=== PATIENT | male | born 1945 | race Caucasian/White ===

== ENCOUNTER 2016-09-19 11:38 | Inpatient (IN) | payer BC, OTHER ==
--- NOTE | 2016-09-19 12:08 | EDPHY ---
H & P Stated Complaint: Sent by PCP for recheck/eval elevated creatinine on Saturday Time Seen by Provider: 09/19/16 11:53 HPI/ROS: CHIEF COMPLAINT: Referred to the ED for evaluation of abnormal creatinine HISTORY OF PRESENT ILLNESS: The patient presents to the emergency department after he was diagnosed with acute renal failure with screening laboratory studies which were performed on Saturday. The patient denies prior history of acute renal failure but does have a history of BPH. Patient had been out of his Flomax for several weeks. The patient has had some symptoms of indigestion but denies any anuria. The patient does report history of congestive heart failure secondary to obstructive sleep apnea. The patient does take lisinopril and unknown diuretic. The patient denies any additional medication changes. The patient denies weight gain. The patient denies excessive dyspnea. The patient reportedly had a creatinine of 11 according to his primary care provider. The patient was not sent to the ED with any laboratory studies. REVIEW OF SYSTEMS: A comprehensive 10 point review of systems is otherwise negative aside from elements mentioned in the history of present illness. Source: Patient Exam Limitations: No limitations - Personal History Current Tetanus Diphtheria and Acellular Pertussis (TDAP): Yes - Medical/Surgical History Other PMH: HTN. CHF. GERD - Family History Significant Family History: No pertinent family hx - Social History Smoking Status: Former smoker - Physical Exam Exam: General Appearance: Alert, no acute distress Eyes: Pupils equal and round no pallor or injection ENT, Mouth: Mucous membranes moist Respiratory: There are no retractions, lungs are clear to auscultation Cardiovascular: Regular rate and rhythm Gastrointestinal: Abdomen is soft and nontender, no masses, bowel sounds normal Neurological: A&O, normal motor function, normal sensory exam, normal cranial nerves Skin: Warm and dry, no rashes Musculoskeletal: Neck is supple nontender Extremities: symmetrical, full range of motion Constitutional: Initial Vital Signs Temperature (C) 36.7 C 09/19/16 11:40 Heart Rate 90 09/19/16 11:40 Respiratory Rate 18 09/19/16 11:40 Blood Pressure 171/98 H 09/19/16 11:40 O2 Sat (%) 96 09/19/16 11:40 O2 Delivery Mode Room Air Allergies/Adverse Reactions: azithromycin [From Zithromax] Allergy (Mild, Verified 09/19/16 11:45) black splotches on skin Home Medications: Medication Instructions Recorded Albuterol [Proventil Inhaler HFA 1 - 2 puffs IH 09/19/16 (*)] Hydrochlorothiazide [HCTZ (*)] 25 mg PO DAILY 09/19/16 Lisinopril [Zestril 20 mg (*)] 20 mg PO 09/19/16 Omeprazole [Prilosec 20 mg] 20 mg PO DAILY 09/19/16 Tamsulosin HCl [Flomax 0.4 MG (*)] 0.4 mg PO 09/19/16 Medical Decision Making - Diagnostics EKG Interpretation: EKG: Complete interpretation has been separately recorded in the [employer] archive. Summary impression: Sinus rhythm, rate 73. ED Course/Re-evaluation: The patient presents to the ED with reportedly newly diagnosed acute renal failure. The patient is hemodynamically stable upon arrival aside from mild hypertension. The patient does not appear to be fluid overloaded. The patient has been placed on a instructional design consultant and a i-STAT creatinine was obtained. I- STAT does confirm a elevated creatinine of 11.5. The patient is noted to have a normal potassium of 4.5. His EKG demonstrates no widened QRS or significant arrhythmia. The patient did void and had a postvoid residual measured at 600 mL. A Hill catheter has been placed in the setting of his acute renal failure and urinary retention. The patient will be admitted to the hospital for further evaluation and management of his acute renal failure. Consultation was made with the hospitalist at 12:50 p.m.: The patient will be admitted to the hospital by Dr. Cristy Woodall. Consultation was made with nephrology at 1:00 p.m and I spoke with Dr. Deshpande. The patient will be evaluated by their service. A retroperitoneal ultrasound has been ordered The patient was re-evaluated by myself at 1:00 p.m.. He is informed of the plan for hospitalization. The patient's Hill catheter has put out 1800 mL in the 1st 0.5 hour. Differential Diagnosis: Differential diagnosis considered includes acute renal failure, acute urinary retention, hyperkalemia, medication side effect - Data Points Laboratory Results: Laboratory Results 09/19/16 12:15 09/19/16 12:15 09/19/16 09/19/16 09/19/16 12:19 12:15 12:15 WBC 6.24 10^3/uL 10^3/uL (3.80-9.50) RBC 2.86 10^6/uL L 10^6/uL (4.40-6.38) Hgb 8.5 g/dL L g/dL (13.7-17.5) POC Hgb 9.2 gm/dL L gm/dL (14.5-17.3) Hct 26.9 % L % (40.0-51.0) POC Hct 27 % L % (42.8-50.6) MCV 94.1 fL fL (81.5-99.8) MCH 29.7 pg pg (27.9-34.1) MCHC 31.6 g/dL L g/dL (32.4-36.7) RDW 13.7 % % (11.5-15.2) Plt Count 123 10^3/uL L 10^3/uL (150-400) MPV 12.9 fL H fL (8.7-11.7) Neut % (Auto) 76.7 % H % (39.3-74.2) Lymph % (Auto) 9.6 % L % (15.0-45.0) Day % (Auto) 9.9 % % (4.5-13.0) Eos % (Auto) 3.0 % % (0.6-7.6) Baso % (Auto) 0.3 % % (0.3-1.7) Nucleat RBC Rel Count 0.0 % % (0.0-0.2) Absolute Neuts (auto) 4.78 10^3/uL 10^3/uL (1.70-6.50) Absolute Lymphs (auto) 0.60 10^3/uL L 10^3/uL (1.00-3.00) Absolute Monos (auto) 0.62 10^3/uL 10^3/uL (0.30-0.80) Absolute Eos (auto) 0.19 10^3/uL 10^3/uL (0.03-0.40) Absolute Basos (auto) 0.02 10^3/uL 10^3/uL (0.02-0.10) Absolute Nucleated RBC 0.00 10^3/uL 10^3/uL (0-0.01) Immature Gran % 0.5 % % (0.0-1.1) Immature Gran # 0.03 10^3/uL 10^3/uL (0.00-0.10) POC Sodium 136 mEq/L mEq/L (134-144) Sodium 137 mEq/L mEq/L (134-144) POC Potassium 4.5 mEq/L mEq/L (3.3-5.0) Potassium 4.8 mEq/L mEq/L (3.5-5.2) POC Chloride 102 mEq/L mEq/L (96-108) Chloride 102 mEq/L mEq/L (97-110) Carbon Dioxide 19 mEq/l L mEq/l (22-31) Anion Gap 16 mEq/L mEq/L (8-16) POC BUN 112 mg/dL H* mg/dL (7-23) BUN 101 mg/dL H* mg/dL (7-23) Creatinine 10.9 mg/dL H* mg/dL (0.7-1.3) POC Creatinine 11.5 mg/dL H* mg/dL (0.8-1.5) Estimated GFR 5 Glucose 88 mg/dL mg/dL (70-100) POC Glucose 91 mg/dL mg/dL (70-100) Calcium 8.4 mg/dL L mg/dL (8.5-10.4) Point of Care Test Results: 09/19/16 12:19 POC Sodium 136 POC Potassium 4.5 POC Chloride 102 POC BUN 112 H* POC Creatinine 11.5 H* POC Glucose 91 Departure - Departure Disposition: [facility] Inpatient Acute Clinical Impression: Acute renal failure, Urinary retention Condition: Fair
--- NOTE | 2016-09-19 12:21 | CPEKG ---
Heart Rate: 73 RR Interval: 822 P-R Interval: 248 QRSD Interval: 156 QT Interval: 448 QTC Interval: 494 P [place]: 61 QRS [place]: 51 T Wave [place]: 46 EKG Severity - ABNORMAL ECG - EKG Impression: SINUS RHYTHM EKG Impression: FIRST DEGREE AV BLOCK EKG Impression: PROBABLE LEFT ATRIAL ABNORMALITY EKG Impression: RIGHT BUNDLE BRANCH BLOCK Electronically Signed By: Lux Leone 19-Sep-2016 15:53:27
[2016-09-19 12:29] LABS: % IMMATURE GRANULYOCYTES 0.5 % (0.0-1.1); ABSOLUTE IMMATURE GRANULOCYTES 0.03 10^3/uL (0.00-0.10); ADD DIFF? NO; ADD MORPH? NO; ADD SCAN? NO; ATYPICAL LYMPHOCYTE FLAG 0 (0-99); FRAGMENT RBC FLAG 0 (0-99); HEMATOCRIT 26.9 % (40.0-51.0); HEMOGLOBIN 8.5 g/dL (13.7-17.5); LEFT SHIFT FLG 0 (0-99); LIPEMIA HEMOLYSIS FLAG 80 (0-99); MEAN CELL HEMOGLOBIN 29.7 pg (27.9-34.1); MEAN CELL HEMOGLOBIN CONCENTR. 31.6 g/dL (32.4-36.7); MEAN CELL VOLUME 94.1 fL (81.5-99.8); MEAN PLATELET VOLUME 12.9 fL (8.7-11.7); PLATELET CLUMPS FLAG 10 (0-99); PLATELET COUNT 123 10^3/uL (150-400); RED BLOOD CELL COUNT 2.86 10^6/uL (4.40-6.38); RED CELL DISTRIBUTION WIDTH 13.7 % (11.5-15.2)
[2016-09-19 12:52] LABS: ANION GAP 16 mEq/L (8-16); CALCIUM 8.4 mg/dL (8.5-10.4); CARBON DIOXIDE 19 mEq/l (22-31); CHLORIDE 102 mEq/L (97-110); GLOMERULAR FILTRATION RATE 5; GLUCOSE 88 mg/dL (70-100); POTASSIUM 4.8 mEq/L (3.5-5.2); SODIUM 137 mEq/L (134-144)
[2016-09-19 12:56] LABS: CREATININE 10.9 mg/dL (0.7-1.3)
[2016-09-19] MEDS ORDERED: ONDANSETRON 4 MG/2 ML VIAL IVP PRN (14:35)
[2016-09-19] MEDS ORDERED: ONDANSETRON DISINTEGRATING 4 MG TAB PO PRN (14:35)
[2016-09-19] MEDS ORDERED: ACETAMINOPHEN 325 MG TAB PO PRN (14:35)
[2016-09-19 15:28] LABS: COLOR YELLOW; LEUKOCYTE ESTERASE,URINE NEGATIVE (NEGATIVE); NITRITE,URINE NEGATIVE (NEGATIVE)
--- NOTE | 2016-09-19 16:51 | PDGENHP ---
History and Physical - Chief Complaint abnormal labs - History of Present Illness 71 yo male with long h/o BPH who stopped his flomax 6 weeks ago, had labs drawn at the [facility] Saturday and was sent to the ED due to elevated creatinine. History Information - Allergies/Home Medication List Allergies/Adverse Reactions: azithromycin [From Zithromax] Allergy (Mild, Verified 09/19/16 11:45) black splotches on skin Fish Containing Products [fish] Allergy (Verified 09/19/16 14:34) fish derived Allergy (Verified 09/19/16 14:34) Home Medications: Albuterol [Proventil Inhaler HFA (*)] 1 - 2 puffs IH Q4H PRN 09/19/16 [Last Taken Unknown] Chlorthalidone [Chlorthalidone 25 mg (*)] 12.5 mg PO DAILY 09/19/16 [Last Taken 09/19/16] Ibuprofen [Motrin (*)] 400 mg PO DAILY PRN 09/19/16 [Last Taken Unknown] Lisinopril [Zestril 20 mg (*)] 20 mg PO DAILY@18 09/19/16 [Last Taken 09/18/16] Omeprazole [Prilosec 20 mg] 20 mg PO DAILY 09/19/16 [Last Taken 09/19/16] Tamsulosin HCl [Flomax 0.4 MG (*)] 0.4 mg PO HS 09/19/16 [Last Taken 09/18/16] I have personally reviewed and updated: family history, medical history, social history, surgical history - Past Medical History GERD Additional medical history: CHICA, h/o heart failure, mild intermittent asthma, hypertension - Surgical History Reports: hernia repair Additional surgical history: umbilical hernia repair - Family History Additional family history: Mom had Parkinson's, sister had leukemia - Social History Smoking Status: Former smoker Alcohol Use: Rarely Drug Use: None (Lives in [place], retired taxi dispatcher) Review of Systems ROS: 10pt was reviewed & negative except for what was stated in HPI & below Physical Exam Temp Pulse Resp BP Pulse Ox 36.7 C 79 20 150/94 H 95 09/19/16 15:48 09/19/16 15:48 09/19/16 15:48 09/19/16 15:48 09/19/16 15:48 Constitutional: no apparent distress Eyes: PERRL Ears, Nose, Mouth, Throat: moist mucous membranes Cardiovascular: regular rate and rhythym, no murmur, rub, or gallop Respiratory: no respiratory distress, clear to auscultation Gastrointestinal: normoactive bowel sounds, soft, non-tender abdomen Skin: warm Musculoskeletal: full muscle strength Neurologic: AAOx3 Psychiatric: interacting appropriately Lab Data & Imaging Review 09/19/16 12:15 09/19/16 12:15 WBC 6.24 10^3/uL (3.80-9.50) 09/19/16 12:15 RBC 2.86 10^6/uL (4.40-6.38) L 09/19/16 12:15 Hgb 8.5 g/dL (13.7-17.5) L 09/19/16 12:15 POC Hgb 9.2 gm/dL (14.5-17.3) L 09/19/16 12:19 Hct 26.9 % (40.0-51.0) L 09/19/16 12:15 POC Hct 27 % (42.8-50.6) L 09/19/16 12:19 MCV 94.1 fL (81.5-99.8) 09/19/16 12:15 MCH 29.7 pg (27.9-34.1) 09/19/16 12:15 MCHC 31.6 g/dL (32.4-36.7) L 09/19/16 12:15 RDW 13.7 % (11.5-15.2) 09/19/16 12:15 Plt Count 123 10^3/uL (150-400) L 09/19/16 12:15 MPV 12.9 fL (8.7-11.7) H 09/19/16 12:15 Neut % (Auto) 76.7 % (39.3-74.2) H 09/19/16 12:15 Lymph % (Auto) 9.6 % (15.0-45.0) L 09/19/16 12:15 [place] % (Auto) 9.9 % (4.5-13.0) 09/19/16 12:15 Eos % (Auto) 3.0 % (0.6-7.6) 09/19/16 12:15 Baso % (Auto) 0.3 % (0.3-1.7) 09/19/16 12:15 Nucleat RBC Rel Count 0.0 % (0.0-0.2) 09/19/16 12:15 Absolute Neuts (auto) 4.78 10^3/uL (1.70-6.50) 09/19/16 12:15 Absolute Lymphs (auto) 0.60 10^3/uL (1.00-3.00) L 09/19/16 12:15 Absolute Monos (auto) 0.62 10^3/uL (0.30-0.80) 09/19/16 12:15 Absolute Eos (auto) 0.19 10^3/uL (0.03-0.40) 09/19/16 12:15 Absolute Basos (auto) 0.02 10^3/uL (0.02-0.10) 09/19/16 12:15 Absolute Nucleated RBC 0.00 10^3/uL (0-0.01) 09/19/16 12:15 Immature Gran % 0.5 % (0.0-1.1) 09/19/16 12:15 Immature Gran # 0.03 10^3/uL (0.00-0.10) 09/19/16 12:15 POC Sodium 136 mEq/L (134-144) 09/19/16 12:19 Sodium 137 mEq/L (134-144) 09/19/16 12:15 POC Potassium 4.5 mEq/L (3.3-5.0) 09/19/16 12:19 Potassium 4.8 mEq/L (3.5-5.2) 09/19/16 12:15 POC Chloride 102 mEq/L (96-108) 09/19/16 12:19 Chloride 102 mEq/L (97-110) 09/19/16 12:15 Carbon Dioxide 19 mEq/l (22-31) L 09/19/16 12:15 Anion Gap 16 mEq/L (8-16) 09/19/16 12:15 POC BUN 112 mg/dL (7-23) H* 09/19/16 12:19 BUN 101 mg/dL (7-23) H* 09/19/16 12:15 Creatinine 10.9 mg/dL (0.7-1.3) H* 09/19/16 12:15 POC Creatinine 11.5 mg/dL (0.8-1.5) H* 09/19/16 12:19 Estimated GFR 5 09/19/16 12:15 Glucose 88 mg/dL (70-100) 09/19/16 12:15 POC Glucose 91 mg/dL (70-100) 09/19/16 12:19 Calcium 8.4 mg/dL (8.5-10.4) L 09/19/16 12:15 Urine Color YELLOW 09/19/16 14:53 Urine Appearance HAZY 09/19/16 14:53 Urine pH 7.0 (5.0-7.5) 09/19/16 14:53 Ur Specific [place] 1.009 (1.002-1.030) 09/19/16 14:53 Urine Protein 2+ (NEGATIVE) H 09/19/16 14:53 Urine Ketones NEGATIVE (NEGATIVE) 09/19/16 14:53 Urine Blood 1+ (NEGATIVE) H 09/19/16 14:53 Urine Nitrate NEGATIVE (NEGATIVE) 09/19/16 14:53 Urine Bilirubin NEGATIVE (NEGATIVE) 09/19/16 14:53 Urine Urobilinogen NEGATIVE EU (0.2-1.0) 09/19/16 14:53 Ur Leukocyte Esterase NEGATIVE (NEGATIVE) 09/19/16 14:53 Urine RBC 1-3 /hpf (0-3) 09/19/16 14:53 Urine WBC 5-10 /hpf (0-3) H 09/19/16 14:53 Ur Epithelial Cells TRACE /lpf (NONE-1+) 09/19/16 14:53 Ur Culture Indicated? INDICATED (NI) H 09/19/16 14:53 Urine Glucose 1+ (NEGATIVE) H 09/19/16 14:53 Assessment & Plan Assessment: Acute renal failure secondary to BPH and urinary retention - Normal electrolytes , no dialysis needs. Solorzano placed with 1,800 cc's urine returned. U/S reveals b/l hydro. He is started on Flomax. Will likely need to continue solorzano until Urology follow up. Hold Lisinopril, no nsaids. Nephrology consulted, appreciate assistance. BPH - Flomax, solorzano, will check PSA in am. Urology f/u as above. Anemia - normocytic. New since 2016. SPEP sent per renal. Query anemia of kidney disease given renal failure. Will check hemoccult stools, if positive, will need outpt colonoscopy. Will also send iron studies, B12 and folate. Hypertension - hold Lisinopril given renal failure. Will start low dose Norvasc , up-titrate as needed. Asthma - no acute symptoms, prn albuterol. CHICA - pt should have outpt sleep study for consideration of CPAP. H/O heart failure - no acute exacerbation, monitor. Full code DVT PPLX - CHAKA Dispo - Pt is admitted to inpatient status as he'll likely require >48 hrs hospitalization for ongoing management of his acute renal failure.
[2016-09-19] MEDS ORDERED: ALBUTEROL 60 PUFFS/8 GM MDI IH PRN (16:56)
--- NOTE | 2016-09-19 17:33 | GCON ---
NEPHROLOGY CONSULTATION DATE OF CONSULTATION: 09/19/2016 REASON FOR CONSULTATION: Acute renal failure. HISTORY OF PRESENT ILLNESS: I have been asked to evaluate the patient regarding his acute renal js lure. He is a 71-year-old gentleman with history of longstanding benign prostatic hypertrophy. He has been on Flomax for several years. He also has a history of hypertension, treated with lisinopri l for the last few years. His baseline creatinine appears to be approximately 1.5, and was 1.7 when last quantified in July 2015. He ran out of his Flomax 5 or 6 weeks ago and just had it refille d 2 days ago. He saw his primary care physician on that date due to some abdominal discomfort, whic h he attributed to reflux. Labs drawn on that day revealed a creatinine of 11 and he was subsequent ly referred to the emergency room today. Repeat labs here confirmed a creatinine of nearly 11. A F oley catheter was placed and it immediately returned nearly 2 L of urine. Renal ultrasound performe d after Hill catheter placement revealed moderate, bilateral hydronephrosis. His electrolytes are essentially normal aside from the mild metabolic acidosis. He does have significant anemia with hem oglobin of 8.5. His last hemoglobin in July 2015 was 17.8. He denies any significant change in his voiding symptoms while off Flomax, aside from perhaps and increase in urinary frequency. He den ies any gross hematuria, lower extremity edema or skin rashes. He denies any shortness of breath or dyspnea on exertion. He does not use NSAIDs on a regular basis. PAST MEDICAL HISTORY: 1. BPH, he denies any previous history of urinary retention. 2. Hypertension, treated for approximately 10 years. 3. "CHF." He states this has been attributed to sleep apnea in the past. 4. Obstructive sleep apnea. 5. Gastroesophageal reflux. 6. Asthma. PAST SURGICAL HISTORY: Umbilical hernia repair. ALLERGIES: Azithromycin and fish-containing products. ADMISSION MEDICATIONS: Lisinopril 20 mg daily, hydrochlorothiazide 25 mg daily, Prilosec 20 mg martha y, Flomax 0.4 mg daily and albuterol inhaler as needed. SOCIAL HISTORY: He is originally from [facility] but has lived in [place] for 45 years. He is retired. In the past he worked as a taxi dispatcher. He is a former smoker. FAMILY HISTORY: Negative for renal disease as far as he is aware. REVIEW OF SYSTEMS: Positive for some abdominal discomfort for approximately 3 weeks, which has now resolved following Hill catheter placement. He denies shortness of breath or chest pain. Aside fr om other positives noted in the HPI, the remainder of 10 organ system review is negative. PHYSICAL EXAMINATION: GENERAL: He is in no acute distress. VITAL SIGNS: Blood pressure is 150/94 , heart rate is 79, oxygen saturation is 95% on room air. HEENT: Sclerae are anicteric. Oral muco sa is moist. NECK: Supple without JVD or lymphadenopathy. There are no carotid bruits. LUNGS: C lear to auscultation bilaterally. BACK: No CVA tenderness. HEART: Regular rate and rhythm. A 2/ 6 systolic murmur. No gallops or rubs. ABDOMEN: Soft and nontender with normoactive bowel sounds. I do not appreciate hepatosplenomegaly, mass or bruits. EXTREMITIES: There is no lower extremity edema. The feet are warm and appear well perfused. Pedal pulses are palpable bilaterally. SKIN: There are no skin rashes. NEUROLOGIC: He is awake, alert and appropriate. There is no facial droop. : Hill catheter is present draining copious amounts of clear, yellow urine. LABORATORY DATA: Sodium 137, potassium 4.8, chloride 102, CO2 19, BUN 101, creatinine 10.9, calcium 8.4. White blood cell count 6.2, hemoglobin 8.5 and platelets 123. Urinalysis shows a specific gr avity of 1.009, 2+ protein, 1+ blood, 1-3 red blood cells and 5-10 white blood cells per high power field. Abdominal ultrasound demonstrates moderate bilateral hydronephrosis and hydroureter without obstructing lesion. The bladder is decompressed by Hill catheter. IMPRESSION AND PLAN: 1. Acute renal failure: This is almost certainly obstructive uropathy due to urinary retention. Chris gallagher is now having copious urine output following placement of a Hill catheter, and I suspect his crea tinine will decrease promptly. The exact duration of his obstruction is unclear. Based on his symp toms and history, this has likely been for at least several weeks. It remains to be seen whether or not he will recover to his baseline creatinine. The presence of new-onset anemia is potentially co ncerning for advanced, chronic renal failure. I will send a serum protein electrophoresis due to th e presence of anemia but will not perform additional diagnostic evaluation at this time. Though he is having copious urine output, he is taking adequate p.o. and I do not feel he necessarily requires replacement IV fluids at this time. 2. Anemia: This has developed over the past 12 months, and could theoretically be due to advanced chronic renal failure. I will check a serum protein electrophoresis, as noted above. If his renal function recovers rapidly and completely, then this should not be attributable to renal failure and other diagnoses should be pursued. 3. Hypertension: His lisinopril could be continued but I would hold his thiazide diuretic as I exp ect he will have a significant post-obstructive diuresis. Thank you for the consultation. We will follow with you. /[id number]/MODL
[2016-09-19 19:21] LABS: % SATURATION 19 % (20-55); TOTAL IRON BINDING CAPACITY 204 ug/dL (260-490)
[2016-09-19] MEDS: HEPARIN 5,000 UNIT/0.5 ML SYR SC SCH (20:15)
[2016-09-19] MEDS: TAMSULOSIN HCL 0.4 MG CAP PO SCH (20:15)
[2016-09-19 22:28] LABS: MAGNESIUM 1.9 mg/dL (1.6-2.3)
[2016-09-20] MEDS: HEPARIN 5,000 UNIT/0.5 ML SYR SC SCH ×3 (05:28→20:38)
[2016-09-20 06:05] LABS: % IMMATURE GRANULYOCYTES 0.6 % (0.0-1.1); ABSOLUTE IMMATURE GRANULOCYTES 0.04 10^3/uL (0.00-0.10); ADD DIFF? NO; ADD MORPH? NO; ADD SCAN? NO; ATYPICAL LYMPHOCYTE FLAG 0 (0-99); FRAGMENT RBC FLAG 0 (0-99); HEMOGLOBIN 8.2 g/dL (13.7-17.5); LEFT SHIFT FLG 0 (0-99); LIPEMIA HEMOLYSIS FLAG 80 (0-99); MEAN CELL HEMOGLOBIN 29.3 pg (27.9-34.1); MEAN CELL HEMOGLOBIN CONCENTR. 31.5 g/dL (32.4-36.7); MEAN CELL VOLUME 92.9 fL (81.5-99.8); MEAN PLATELET VOLUME 12.6 fL (8.7-11.7); PLATELET CLUMPS FLAG 10 (0-99); PLATELET COUNT 138 10^3/uL (150-400); RED CELL DISTRIBUTION WIDTH 13.4 % (11.5-15.2)
[2016-09-20 06:29] LABS: ALBUMIN 3.6 g/dL (3.5-5.0); ANION GAP 17 mEq/L (8-16); CALCIUM 8.3 mg/dL (8.5-10.4); CARBON DIOXIDE 18 mEq/l (22-31); CHLORIDE 102 mEq/L (97-110); GLOMERULAR FILTRATION RATE 5; GLUCOSE 79 mg/dL (70-100); POTASSIUM 4.7 mEq/L (3.5-5.2); SODIUM 137 mEq/L (134-144)
[2016-09-20 06:31] LABS: CREATININE 10.9 mg/dL (0.7-1.3)
--- NOTE | 2016-09-20 08:29 | HOSPPROG ---
Hospitalist Progress Note Assessment/Plan: Patient is a 71-year-old male with a history of BPH. He stop taking his Flomax 6 weeks ago. [facility] and was told to come to the emergency room for further care and evaluation. Today is my 1st encounter with the patient. Chart reviewed. Reviewed his care yesterday with Dr. Woodall who admitted him. *Acute renal failure - Due to urinary retention and BPH - Flomax restarted *BPH - Flomax, solorzano -needs f/u with urology/concerned this will be difficult for the patient/ call into urology -check a PSA *metabolic acidosis -due to the above *Hypotensive -parameters place on when to hold Amlodipine -had been on Lisinopril for htn/ this is on hold due to the above *Anemia - -multiple labs pending - could be attributed to his renal failure - Hemoccult stools, if positive, will need outpt colonoscopy. - has low iron studies, B12 and folate ok *Asthma - no acute symptoms, prn albuterol. *CHICA - pt should have outpt sleep study for consideration of CPAP. *H/O heart failure - no acute exacerbation, monitor. *DVT PPLX - CHAKA heparin Dispo -pending. Subjective: Robby has no c/o pain/ catheter is uncomfortable and where he gets the heparin shots is uncomfortable. Objective: Vital Signs Temp Pulse Resp BP Pulse Ox 36.6 C 67 18 96/60 L 94 09/20/16 07:06 09/20/16 07:06 09/20/16 07:06 09/20/16 07:06 09/20/16 07:06 Laboratory Results 09/20/16 04:27 09/20/16 04:27 09/19/16 09/20/16 09/21/16 05:59 05:59 05:59 Intake Total 825 Output Total 6175 Balance -5350 - Physical Exam Constitutional: no apparent distress Eyes: PERRL Ears, Nose, Mouth, Throat: hearing normal Cardiovascular: regular rate and rhythym Respiratory: no respiratory distress Gastrointestinal: normoactive bowel sounds Skin: warm, No normal color (pale) Musculoskeletal: full muscle strength Neurologic: AAOx3 Psychiatric: interacting appropriately, not anxious ICD10 Worksheet Patient Problems: Problems Problem Status Onset Acute renal failure Acute Urinary retention Acute
[2016-09-20] MEDS: PANTOPRAZOLE SODIUM 40 MG TAB PO SCH (08:42)
[2016-09-20] MEDS ORDERED: SODIUM BICARBONATE 150 MEQ in D5W 1,000 ML IV SCH (11:30)
--- NOTE | 2016-09-20 11:31 | SOAPPROG ---
SOAP Progress Note Assessment/Plan: Assessment/Plan: MICKEY: most likely due to obstruction, pt now with copious UOP s/p solorzano catheter placement. Cr remains 10.9, but lytes ok, expect it will still recover. - Will start pt on D5W with three amps of bicarb. - Will continue to monitor renal function. - Avoid MOM, morphine, demerol, NSAIDs, contrast, aminoglycosides, fleets, and other nephrotoxins. - No urgent need for HD at this time, will continue to evaluate. HTN: agree with holding diuretic and lisinopril for now, continue amlodipine. Currently controlled. Metabolic acidosis: likely secondary to MICKEY, will give fluids with bicarb as above. Subjective: No acute events overnight. Pt states he feels much better, had 6L UOP since yesterday and feels his abdomen is less distended, also having less heartburn now. Objective: Vital Signs Temp Pulse Resp BP Pulse Ox 36.8 C 65 16 122/75 H 95 09/20/16 11:06 09/20/16 11:06 09/20/16 11:06 09/20/16 11:06 09/20/16 11:06 Laboratory Results 09/20/16 04:27 09/20/16 04:27 09/19/16 09/20/16 09/21/16 05:59 05:59 05:59 Intake Total 825 Output Total 6175 Balance -5350 General: alert and oriented, no acute distress Eyes; EOMI, PERRL OP: Clear CV: RRR Resp: CTA bilat, nonlabored respirations on RA Abd; Soft, NT Ext: No edema Neuro: CN II-XII grossly intact, no asterixis Psych: cooperative, appropriate mood and affect ICD10 Worksheet Patient Problems: Problems Problem Status Onset Acute renal failure Acute Urinary retention Acute
[2016-09-20] MEDS: TAMSULOSIN HCL 0.4 MG CAP PO SCH (20:38)
--- NOTE | 2016-09-20 20:48 | PDCONSULT ---
Bookkeeping Machine Mechanic Note: Pt seen at 11:20am A/P Assessment: Renal failure, likely due to chronic bladder outlet obstruction, unsure of chronicity of renal failure BPH/Urinary retention Plan- Leave solorzano in, follow creatinine. Can be discharged from urology standpoint once creatinine trending down Increase tamsulosin to 0.8mg QHS Will need outpatient work up including cystoscopy and UDS Past Medical History - Medical/Surgical History Hx Asthma: Yes Hx Chronic Respiratory Disease: No Hx Cardiac Disease: Yes Hx Diabetes: No Hx Renal Disease: Yes Hx Alcoholism: No Hx Cirrhosis: No Hx HIV/AIDS: No Hx Splenectomy or Spleen Trauma: No Other PMH: HTN. CHF. GERD. BPH. hernia repair - Family History Significant Family History: No pertinent family hx - Social History Smoking Status: Former smoker HPI/HX/ROS/PE/MDM Narrative: 71 y/o WM with history of BPH admitted with AUR and renal failure. Pt has run out of tamsulosin. Bladder had ~1800ml residual. Pt denies prior prostate surgery. No UTIs. No hematuria. No h/o prostate cancer. No fevers. Creatinine hasn't dropped much but significant UOP. - Data Points Laboratory Results: Laboratory Results 09/19/16 12:15 09/19/16 12:15 Physical Exam - Physical Exam General Appearance: WD/WN, alert, no apparent distress EENT: No: scleral icterus (L) Respiratory: No: respiratory distress Cardiac/Chest: regular rate, rhythm Abdomen: non-tender, soft Male Genitalia: other (bladder not palpable. Urine clear) Skin: normal color Extremities: non-tender. No: swelling Neuro/Psych: normal mood/affect, oriented x 3
[2016-09-21] MEDS: HEPARIN 5,000 UNIT/0.5 ML SYR SC SCH ×3 (05:30→20:43)
[2016-09-21 05:39] LABS: ALBUMIN 3.9 g/dL (3.5-5.0); ANION GAP 18 mEq/L (8-16); CALCIUM 8.3 mg/dL (8.5-10.4); CARBON DIOXIDE 21 mEq/l (22-31); CHLORIDE 100 mEq/L (97-110); GLOMERULAR FILTRATION RATE 5; GLUCOSE 92 mg/dL (70-100); POTASSIUM 4.4 mEq/L (3.5-5.2); SODIUM 139 mEq/L (134-144)
[2016-09-21 05:43] LABS: CREATININE 10.6 mg/dL (0.7-1.3)
[2016-09-21] MEDS: PANTOPRAZOLE SODIUM 40 MG TAB PO SCH (08:05)
--- NOTE | 2016-09-21 09:18 | SOAPPROG ---
SOAP Progress Note Assessment/Plan: Assessment: 1. MICKEY BL Cr 1.7 one year ago. It will take some time to see if he is going to recover enough to avoid renal replacement therapy. There are no indications for dialysis. He is feeling better and eating well. Lytes are ok. At this point he is not safe for DC> 2. Acidosis Will change IV bicarb to oral. Lytes are ok. 3. [facility] is seeing. They increased alpha brodie, and will follow as outpatient. Subjective: Feeling better Objective: Vital Signs Temp Pulse Resp BP Pulse Ox 36.8 C 74 18 98/58 L 92 09/21/16 07:12 09/21/16 07:12 09/21/16 07:12 09/21/16 07:12 09/21/16 07:12 Laboratory Results 09/20/16 04:27 09/21/16 04:25 09/20/16 09/21/16 09/22/16 05:59 05:59 05:59 Intake Total 825 3264 Output Total 6175 2350 Balance -5350 914 Physical Exam - Physical Exam General Appearance: no apparent distress Respiratory: lungs clear Cardiac/Chest: regular rate, rhythm Male Genitalia: other (solorzano in place) Extremities: normal inspection ICD10 Worksheet Patient Problems: Problems Problem Status Onset Acute renal failure Acute Urinary retention Acute
[2016-09-21] MEDS: NS 1,000 ML IV SCH (10:47)
--- NOTE | 2016-09-21 11:09 | HOSPPROG ---
Hospitalist Progress Note Assessment/Plan: Patient is a 71-year-old male with a history of BPH. He stop taking his Flomax 6 weeks ago. [facility] and was told to come to the emergency room for further care and evaluation. Reviewed his care yesterday with Dr. Arboleda. *Acute renal failure - Due to urinary retention and BPH -normal saline added *BPH - Flomax, solorzano - Flomax restarted but higher dose - appreciate Dr Viera/ patient will need f/u with him *metabolic acidosis -due to the above -oral bicarb added *Hypotensive -parameters place on when to hold Amlodipine -had been on Lisinopril for htn/ this is on hold due to the above *Anemia - -multiple labs pending - could be attributed to his renal failure - Hemoccult stools, if positive, will need outpt colonoscopy. - has low iron studies, B12 and folate ok *Asthma - no acute symptoms, prn albuterol. *CHICA - pt should have outpt sleep study for consideration of CPAP. *H/O heart failure - no acute exacerbation, monitor. *DVT PPLX - CHAKA heparin Dispo -pending. *Plan: repeat labs in a.m. Subjective: Ok is feeling fine/ appetite is good. Objective: Vital Signs Temp Pulse Resp BP Pulse Ox 36.8 C 74 18 98/58 L 92 09/21/16 07:12 09/21/16 07:12 09/21/16 07:12 09/21/16 07:12 09/21/16 07:12 Laboratory Results 09/20/16 04:27 09/21/16 04:25 09/20/16 09/21/16 09/22/16 05:59 05:59 05:59 Intake Total 825 3264 Output Total 6198 2350 Balance -5350 914 - Physical Exam Constitutional: no apparent distress, appears nourished, not in pain Eyes: PERRL Ears, Nose, Mouth, Throat: hearing normal Respiratory: no respiratory distress Genitourinary: solorzano in urethra Skin: warm Musculoskeletal: full muscle strength Neurologic: AAOx3 ICD10 Worksheet Patient Problems: Problems Problem Status Onset Acute renal failure Acute Urinary retention Acute
[2016-09-21 12:50] LABS: PSA RATIO F/T 0.34 ratio; TOTAL PSA 8.7 ng/mL (<=4.5)
[2016-09-21] MEDS: SODIUM BICARBONATE 650 MG TAB PO SCH ×2 (14:51→20:43)
[2016-09-21] MEDS: TAMSULOSIN HCL 0.4 MG CAP PO SCH (20:43)
[2016-09-22 04:40] LABS: % IMMATURE GRANULYOCYTES 0.4 % (0.0-1.1); ABSOLUTE IMMATURE GRANULOCYTES 0.03 10^3/uL (0.00-0.10); ADD DIFF? NO; ADD MORPH? NO; ADD SCAN? NO; ATYPICAL LYMPHOCYTE FLAG 0 (0-99); FRAGMENT RBC FLAG 0 (0-99); HEMATOCRIT 25.1 % (40.0-51.0); HEMOGLOBIN 8.1 g/dL (13.7-17.5); LEFT SHIFT FLG 0 (0-99); LIPEMIA HEMOLYSIS FLAG 80 (0-99); MEAN CELL HEMOGLOBIN 29.5 pg (27.9-34.1); MEAN CELL HEMOGLOBIN CONCENTR. 32.3 g/dL (32.4-36.7); MEAN CELL VOLUME 91.3 fL (81.5-99.8); MEAN PLATELET VOLUME 12.1 fL (8.7-11.7); PLATELET CLUMPS FLAG 0 (0-99); PLATELET COUNT 139 10^3/uL (150-400); RED BLOOD CELL COUNT 2.75 10^6/uL (4.40-6.38); RED CELL DISTRIBUTION WIDTH 13.6 % (11.5-15.2)
[2016-09-22 05:22] LABS: ALBUMIN 3.3 g/dL (3.5-5.0); ANION GAP 13 mEq/L (8-16); CALCIUM 7.9 mg/dL (8.5-10.4); CARBON DIOXIDE 20 mEq/l (22-31); CHLORIDE 103 mEq/L (97-110); GLOMERULAR FILTRATION RATE 5; GLUCOSE 95 mg/dL (70-100); POTASSIUM 4.4 mEq/L (3.5-5.2); SODIUM 136 mEq/L (134-144)
[2016-09-22] MEDS: NS 1,000 ML IV SCH (06:02)
[2016-09-22] MEDS: HEPARIN 5,000 UNIT/0.5 ML SYR SC SCH ×3 (06:03→21:31)
[2016-09-22] MEDS: SODIUM BICARBONATE 650 MG TAB PO SCH ×3 (08:29→21:31)
[2016-09-22] MEDS: PANTOPRAZOLE SODIUM 40 MG TAB PO SCH (08:29)
[2016-09-22] MEDS ORDERED: TAMSULOSIN HCL 0.4 MG CAP PO SCH ×2 (09:10→09:38)
--- NOTE | 2016-09-22 09:45 | SOAPPROG ---
SOAP Progress Note Assessment/Plan: Assessment: 1. MICKEY BL Cr 1.7 one year ago. Cr down slightly. Continue present plan. 2. Acidosis On oral bicarb. 3. [facility] is seeing. They increased alpha brodie, and will follow as outpatient. Mild gross hematuria likely solorzano trauma. Follow. 09/22/16 09:43 Subjective: Doing ok Objective: Vital Signs Temp Pulse Resp BP Pulse Ox 36.7 C 71 18 102/65 94 09/22/16 07:11 09/22/16 07:11 09/22/16 07:11 09/22/16 07:11 09/22/16 07:11 Microbiology 09/19/16 15:42 Urine Culture - Final Urine,Clean Catch Laboratory Results 09/22/16 04:14 09/22/16 04:14 09/21/16 09/22/16 09/23/16 05:59 05:59 05:59 Intake Total 3264 1785 400 Output Total 2350 2750 Balance 914 -965 400 Physical Exam - Physical Exam General Appearance: no apparent distress Respiratory: lungs clear Cardiac/Chest: regular rate, rhythm Male Genitalia: other (solorzano) Extremities: normal inspection Neuro/Psych: oriented x 3 ICD10 Worksheet Patient Problems: Problems Problem Status Onset Acute renal failure Acute Urinary retention Acute
--- NOTE | 2016-09-22 09:50 | HOSPPROG ---
Hospitalist Progress Note Assessment/Plan: Patient is a 71-year-old male with a history of BPH. He stop taking his Flomax and Lisinopril 6 weeks ago. Was seen [facility] and was told to come to the emergency room for further care and evaluation. *Acute renal failure - Due to urinary retention and BPH -normal saline added *BPH - Flomax, solorzano - Flomax restarted /dose to be increased, but will hold increasing, bp has been too low - appreciate Dr Viera/ patient will need f/u with him *metabolic acidosis -due to the above -oral bicarb added *hematuria *Hypotensive -dc amlodipine -had been on Lisinopril for htn/ this is on hold due to the above *Anemia - - could be attributed to his renal failure - Hemoccult stools are negative - has low iron studies, B12 and folate ok *Asthma - no acute symptoms, prn albuterol. *CHICA - pt should have outpt sleep study for consideration of CPAP. *H/O heart failure - no acute exacerbation, monitor. *h/o pulmonary htn *DVT PPLX - CHAKA heparin Dispo -pending. *Plan: repeat labs in a.m. Subjective: Robby has no complaints. Objective: Vital Signs Temp Pulse Resp BP Pulse Ox 36.7 C 71 18 102/65 94 09/22/16 07:11 09/22/16 07:11 09/22/16 07:11 09/22/16 07:11 09/22/16 07:11 Microbiology 09/19/16 15:42 Urine Culture - Final Urine,Clean Catch Laboratory Results 09/22/16 04:14 09/22/16 04:14 09/21/16 09/22/16 09/23/16 05:59 05:59 05:59 Intake Total 3264 1785 400 Output Total 2350 2750 Balance 914 -965 400 - Physical Exam Constitutional: no apparent distress, appears nourished, not in pain Eyes: PERRL Ears, Nose, Mouth, Throat: hearing normal Cardiovascular: regular rate and rhythym Respiratory: no respiratory distress Gastrointestinal: normoactive bowel sounds Genitourinary: solorzano in urethra Skin: warm, No normal color (pale) Musculoskeletal: full muscle strength Neurologic: AAOx3 Psychiatric: interacting appropriately, not anxious ICD10 Worksheet Patient Problems: Problems Problem Status Onset Acute renal failure Acute Urinary retention Acute
[2016-09-23] MEDS: NS 1,000 ML IV SCH ×2 (03:25→23:29)
[2016-09-23 05:20] LABS: % IMMATURE GRANULYOCYTES 0.4 % (0.0-1.1); ABSOLUTE IMMATURE GRANULOCYTES 0.04 10^3/uL (0.00-0.10); ADD DIFF? NO; ADD MORPH? NO; ADD SCAN? NO; ATYPICAL LYMPHOCYTE FLAG 0 (0-99); FRAGMENT RBC FLAG 0 (0-99); HEMATOCRIT 25.9 % (40.0-51.0); HEMOGLOBIN 8.1 g/dL (13.7-17.5); LEFT SHIFT FLG 0 (0-99); LIPEMIA HEMOLYSIS FLAG 80 (0-99); MEAN CELL HEMOGLOBIN 28.9 pg (27.9-34.1); MEAN CELL HEMOGLOBIN CONCENTR. 31.3 g/dL (32.4-36.7); MEAN CELL VOLUME 92.5 fL (81.5-99.8); MEAN PLATELET VOLUME 12.1 fL (8.7-11.7); PLATELET CLUMPS FLAG 0 (0-99); PLATELET COUNT 155 10^3/uL (150-400); RED CELL DISTRIBUTION WIDTH 13.6 % (11.5-15.2)
[2016-09-23] MEDS: HEPARIN 5,000 UNIT/0.5 ML SYR SC SCH ×3 (05:32→22:08)
[2016-09-23 05:35] LABS: ALBUMIN 3.5 g/dL (3.5-5.0); ANION GAP 16 mEq/L (8-16); CALCIUM 8.3 mg/dL (8.5-10.4); CARBON DIOXIDE 18 mEq/l (22-31); CHLORIDE 103 mEq/L (97-110); GLOMERULAR FILTRATION RATE 5; GLUCOSE 103 mg/dL (70-100); POTASSIUM 4.7 mEq/L (3.5-5.2); SODIUM 137 mEq/L (134-144)
[2016-09-23 05:42] LABS: CREATININE 9.8 mg/dL (0.7-1.3)
[2016-09-23] MEDS: SODIUM BICARBONATE 650 MG TAB PO SCH ×3 (08:59→22:06)
[2016-09-23] MEDS: PANTOPRAZOLE SODIUM 40 MG TAB PO SCH (09:00)
--- NOTE | 2016-09-23 10:12 | SOAPPROG ---
[facility] Progress Note Assessment/Plan: Assessment: 1. MICKEY BL Cr 1.7 one year ago. Cr falling very slowly. Lytes, volume ok. He is eating and drinking well. I believe he could be dc'd tomorrow. Follow up appt with Urology and Nephrology need to be in place. He will need frequent outpatient labs. 2. Acidosis On oral bicarb. 3. [facility] is seeing. They increased alpha brodie, and will follow as outpatient. 09/22/16 09:43 09/23/16 10:09 Subjective: Doing ok Objective: Vital Signs Temp Pulse Resp BP Pulse Ox 36.8 C 73 16 105/56 L 95 09/23/16 08:00 09/23/16 08:00 09/23/16 08:00 09/23/16 08:00 09/23/16 08:00 Laboratory Results 09/23/16 04:57 09/23/16 04:57 09/22/16 09/23/16 09/24/16 05:59 05:59 05:59 Intake Total 1785 1100 Output Total 2750 2550 Balance -965 -1450 Physical Exam - Physical Exam General Appearance: no apparent distress Respiratory: lungs clear Cardiac/Chest: regular rate, rhythm Male Genitalia: other (solorzano) Extremities: pedal edema Neuro/Psych: oriented x 3 ICD10 Worksheet Patient Problems: Problems Problem Status Onset Acute renal failure Acute Urinary retention Acute
--- NOTE | 2016-09-23 10:22 | HOSPPROG ---
Hospitalist Progress Note Assessment/Plan: Patient is a 71-year-old male with a history of BPH. He stop taking his Flomax and Lisinopril 6 weeks ago. [facility] and was told to come to the emergency room for further care and evaluation. *Acute renal failure - Due to urinary retention and BPH -normal saline added *BPH - Flomax, solorzano - Flomax restarted /increase dose tonight to see how he does - appreciate Dr Viera/ patient will need f/u with him *metabolic acidosis -due to the above -oral bicarb added *gout -Dr Nkechi sears with giving colchicine *bladder spasms -due to solorzano *hematuria *Hypotensive -dc amlodipine -had been on Lisinopril for htn/ this is on hold due to the above *Anemia - - could be attributed to his renal failure - Hemoccult stools are negative - has low iron studies, B12 and folate ok *Asthma - no acute symptoms, prn albuterol. *CHICA - pt should have outpt sleep study for consideration of CPAP. *H/O heart failure - no acute exacerbation, monitor. *h/o pulmonary htn *DVT PPLX - CHAKA heparin Dispo -pending. *Plan: reviewed his care w Dr Arboldea/ orion to dc tomorrow, but will need an appt set up with Dr Viera prior to dc/ will need labs checked every other day and called to nephrology. Subjective: Robby is feeling well/ except for some gout in his foot. Objective: Vital Signs Temp Pulse Resp BP Pulse Ox 36.8 C 73 16 105/56 L 95 09/23/16 08:00 09/23/16 08:00 09/23/16 08:00 09/23/16 08:00 09/23/16 08:00 Laboratory Results 09/23/16 04:57 09/23/16 04:57 09/22/16 09/23/16 09/24/16 05:59 05:59 05:59 Intake Total 1785 1100 Output Total 2750 2550 Balance -965 -1450 - Physical Exam Constitutional: no apparent distress, appears nourished Eyes: PERRL Ears, Nose, Mouth, Throat: hearing normal Cardiovascular: regular rate and rhythym Respiratory: no respiratory distress Gastrointestinal: normoactive bowel sounds Genitourinary: solorzano in urethra Skin: warm Musculoskeletal: full muscle strength, no muscle tenderness Neurologic: AAOx3 Psychiatric: interacting appropriately ICD10 Worksheet Patient Problems: Problems Problem Status Onset Acute renal failure Acute Urinary retention Acute
[2016-09-23] MEDS ORDERED: COLCHICINE 0.6 MG CAP/TAB PO ONE (10:23)
[2016-09-23] MEDS ORDERED: TAMSULOSIN HCL 0.4 MG CAP PO SCH (10:23)
[2016-09-23 15:43] VITALS: RESP 18
[2016-09-23] MEDS: OPIUM/BELLADONNA ALKALO SUPP PR PRN ×2 (16:22→22:31)
[2016-09-24 05:39] LABS: % IMMATURE GRANULYOCYTES 0.7 % (0.0-1.1); ABSOLUTE IMMATURE GRANULOCYTES 0.06 10^3/uL (0.00-0.10); ADD DIFF? NO; ADD MORPH? NO; ADD SCAN? NO; ATYPICAL LYMPHOCYTE FLAG 0 (0-99); FRAGMENT RBC FLAG 0 (0-99); HEMATOCRIT 25.2 % (40.0-51.0); HEMOGLOBIN 7.9 g/dL (13.7-17.5); LEFT SHIFT FLG 0 (0-99); LIPEMIA HEMOLYSIS FLAG 80 (0-99); MEAN CELL HEMOGLOBIN 28.8 pg (27.9-34.1); MEAN CELL HEMOGLOBIN CONCENTR. 31.3 g/dL (32.4-36.7); MEAN PLATELET VOLUME 12.2 fL (8.7-11.7); PLATELET CLUMPS FLAG 0 (0-99); PLATELET COUNT 154 10^3/uL (150-400); RED BLOOD CELL COUNT 2.74 10^6/uL (4.40-6.38); RED CELL DISTRIBUTION WIDTH 13.7 % (11.5-15.2)
[2016-09-24] MEDS: HEPARIN 5,000 UNIT/0.5 ML SYR SC SCH (05:43)
[2016-09-24] MEDS: OPIUM/BELLADONNA ALKALO SUPP PR PRN (05:45)
[2016-09-24 06:01] LABS: ALBUMIN 3.2 g/dL (3.5-5.0); ANION GAP 16 mEq/L (8-16); CALCIUM 8.2 mg/dL (8.5-10.4); CARBON DIOXIDE 19 mEq/l (22-31); CHLORIDE 105 mEq/L (97-110); GLOMERULAR FILTRATION RATE 6; GLUCOSE 90 mg/dL (70-100); POTASSIUM 4.7 mEq/L (3.5-5.2); SODIUM 140 mEq/L (134-144)
[2016-09-24 06:04] LABS: CREATININE 9.2 mg/dL (0.7-1.3)
[2016-09-24 07:18] VITALS: BP 99/66; PULSE 80; TEMP 98.8; O2SAT 93
[2016-09-24] MEDS: SODIUM BICARBONATE 650 MG TAB PO SCH (09:11)
[2016-09-24] MEDS: PANTOPRAZOLE SODIUM 40 MG TAB PO SCH (09:11)
--- NOTE | 2016-09-24 10:41 | PDDCSUM ---
Discharge Summary Discharge Summary: DISCHARGE SUMMARY FOLLOW-UP ITEMS: 1. Follow-up renal panel twice weekly 2. Follow-up CBC once weekly 3. Discontinue Hill catheter when able DATE OF ADMISSION: 09/19/2016 DATE OF DISCHARGE: 09/24/2016 DISCHARGE DIAGNOSES: 1. Acute kidney injury secondary to bladder outlet obstruction 2. BPH 3. Acute metabolic acidosis 4. Gout 5. Acute bladder spasms 6. Acute hypotension 7. Suspected anemia of chronic kidney disease 8. Chronic asthma 9. Chronic CHICA 10. Acute hydronephrosis, bilaterally CONSULTATIONS: Nephrology, Urology PROCEDURES / IMAGING: Ultrasound of the abdomen pelvis demonstrating moderate left and mild to moderate right hydronephrosis CHIEF COMPLAINT: Acute weakness SUBJECTIVE: Patient reports his weakness has improved, is not experiencing any significant orthostatics symptoms PHYSICAL EXAM ON DISCHARGE: Systolic blood pressure is 1/100, heart rate 80s, afebrile overnight, satting well on room air, no inspiratory crackles in the bilateral bases, bowel sounds are present with soft abdomen, no lower extremity edema, heart regular rate and rhythm LABS ON DISCHARGE: Creatinine 9.2, BUN 96, potassium 4.7, phosphorus 7.6, calcium 8.2, hemoglobin 7.9 HOSPITAL COURSE BY PROBLEM: 1. Acute kidney injury. Secondary to bladder outlet obstruction with evidence of hydronephrosis on ultrasound and history of BPH. Patient received Hill catheter placement, was seen in consultation by Urology, had his dosage of Flomax increased. His kidney function has been improving since Hill catheter has been placed, and he will follow up with Dr. Arboleda as an outpatient. He will have twice weekly labs to monitor his progress. He is experiencing an element of post kidney injury diuresis, but his urine output has slowed from 6 L over 24 hours to 2 L over 24 hours. We believe that the patient should maintain good oral hydration and oral intake of solids and liquids in the immediate future. 2. Chronic BPH. Patient has historically been taking 0.4 mg of Flomax and this has been increased to 0.8 mg. He will follow up with Dr. Harding next week for reassessment of Hill catheter needs. 3. Acute metabolic acidosis. Secondary to kidney injury, he has been placed on high dosage oral bicarbonate. This will be continued, his labs will be followed. 4. Acute hydronephrosis. Evidence on ultrasound, secondary to BPH, Hill catheter relieved pressure. 5. Gout. Dr. Arboleda was okay with the patient receiving colchicine for gout , we will initiate 0.6 mg once daily and have patient monitor his symptoms and follow up with Dr. Arboleda. 6. Acute bladder spasms. Secondary to Hill catheter, pain is well controlled. 7. Acute hypotension. Patient's home antihypertensives were discontinued so they did not exacerbate his acute kidney injury. He has been receiving IV fluids for acute hypotension experienced during massive diuresis. This did extend his hospitalization. 8. Suspected anemia of chronic kidney disease. Patient's fecal occult blood sample was negative, B12 and folate were within normal limits, his iron studies indicated either inflammatory disease process or chronic kidney disease. He did not receive any additional iron supplementation and he did not require a blood transfusion at time of discharge. He will have his blood counts followed up as an outpatient. 9. Chronic CHICA. Patient should have a sleep study arranged as an outpatient after he obtains adequate medical coverage. DISCHARGE MEDICATIONS: Please see official discharge medication reconciliation sheet in chart , Flomax 0.8 mg daily, colchicine 0.6 mg daily, bicarbonate 1350 3 times daily DISCHARGE INSTRUCTIONS: Follow up with Dr. Viera and Dr. Arboleda within 1 week, labs twice weekly. TIME SPENT: Greater than 30 minutes were spent on direct patient care, as well as discharge planning and preparation.
--- NOTE | 2016-09-24 11:01 | SOAPPROG ---
JES[facility] Progress Note Assessment/Plan: Assessment:Plan: ARF on CRF-Creatinine 9.2 -down from 10.9 on admission -solorzano in place -plan for discharge with close outpatient followup -labs every Saturday and -plan for follow up in Nephrology with Dr. Arboleda in the next two weeks -would leave solorzano in place until creatinine has achieved either prior baseline or has established new baseline -obstructive uropathy -to f/u with Dr. Viera CKD-creatinine 1.7 on 07/31 2015 -we will need to see what recovers to Dispo-home today -I gave him a slip for standing labs 09/24/16 11:00 Subjective: no new complaints Objective: Vital Signs Temp Pulse Resp BP Pulse Ox 37.1 C 80 18 99/66 L 93 09/24/16 07:17 09/24/16 07:17 09/24/16 07:17 09/24/16 07:17 09/24/16 07:17 Laboratory Results 09/24/16 04:26 09/24/16 04:26 09/23/16 09/24/16 09/25/16 05:59 05:59 05:59 Intake Total 1100 1800 Output Total 2550 2450 Balance -1450 -650 Physical Exam - Physical Exam General Appearance: WD/WN, alert, no apparent distress EENT: normal ENT inspection Neck: normal inspection Respiratory: lungs clear, normal breath sounds, No respiratory distress Cardiac/Chest: regular rate, rhythm Abdomen: normal bowel sounds Extremities: No swelling ICD10 Worksheet Patient Problems: Problems Problem Status Onset Acute renal failure Acute Urinary retention Acute
== END 2016-09-24 12:49 | disposition home or self-care (01) | DRG 683 ==
LOC: F3E 13:55
PROVIDERS: ADMIT Hospitalist; ATTEND Hospitalist
PROC: 0T9B70Z Drainage of Bladder with Drainage Device, Via Natural or Artificial Opening (ICD-10-PCS; principal; 2016-09-19)
DX: N17.9 Acute kidney failure, unspecified (principal); N40.1 Benign prostatic hyperplasia with lower urinary tract symptoms; N13.8 Other obstructive and reflux uropathy; R33.8 Other retention of urine; N13.30 Unspecified hydronephrosis; N32.89 Other specified disorders of bladder; E87.2 Acidosis; K21.9 Gastro-esophageal reflux disease without esophagitis; G47.33 Obstructive sleep apnea (adult) (pediatric); D64.9 Anemia, unspecified; I95.9 Hypotension, unspecified; I10 Essential (primary) hypertension; I50.9 Heart failure, unspecified; Z87.891 Personal history of nicotine dependence; M10.9 Gout, unspecified
CPT/HCPCS: 82607-90; 82947-QW; 84154-90; 96374